=== PATIENT | male | born 1960 | race Caucasian/White ===

== ENCOUNTER 2017-02-10 14:30 | Emergency (ER) | payer BC, OTHER ==
[2017-02-10 14:38] VITALS: BP 132/78
--- NOTE | 2017-02-10 14:58 | UC ---
UC General HPI - HPI Summary HPI Summary: complaint of rash on left leg started approx 2 months ago used hydrocortisone without any relief rash started to feel rough so he used vaseline 2xday with some relief then 2 weeks ago it worsened without vaseline gets scabbed and sticks to his socks slightly itchy denies fever and chills - History of Current Complaint Chief Complaint: UCSkin Stated Complaint: RASH Time Seen by Provider: 02/10/17 14:52 Hx Obtained From: Patient - Allergy/Home Medications Allergies/Adverse Reactions: Allergies Allergy/AdvReac Type Severity Reaction Status Date / Time No Known Allergies Allergy Verified 07/04/15 16:07 PMH/Surg Hx/FS Hx/Imm Hx Previously Healthy: Yes Cardiovascular History: Hypertension - Surgical History Surgical History: Yes Surgery Procedure, Year, and Place: kidney x 2; hernia; knee right repair; cataracts bilat - Family History Known Family History: Negative: Cardiac Disease, Hypertension, Diabetes - Social History Occupation: Employed Full-time Lives: With Family Alcohol Use: Rare Substance Use Type: None Smoking Status (MU): Never Smoked Tobacco - Immunization History Most Recent Tetanus Shot: aug 2014 Review of Systems Constitutional: Negative Skin: Rash Eyes: Negative ENT: Negative Respiratory: Negative Cardiovascular: Negative Gastrointestinal: Negative Genitourinary: Negative Motor: Negative Neurovascular: Negative Musculoskeletal: Negative Neurological: Negative Psychological: Negative All Other Systems Reviewed And Are Negative: Yes Physical Exam Triage Information Reviewed: Yes Appearance: No Pain Distress, Well-Nourished Vital Signs: Initial Vital Signs Temp 98 F 02/10/17 14:33 Pulse 58 02/10/17 14:33 Resp 16 02/10/17 14:33 BP 132/78 02/10/17 14:33 Pulse Ox 99 02/10/17 14:33 Vital Signs Reviewed: Yes Eyes: Positive: Conjunctiva Clear ENT: Positive: Pharynx normal, TMs normal Neck: Positive: Supple Respiratory: Positive: Lungs clear, Normal breath sounds, No respiratory distress, No accessory muscle use Cardiovascular: Positive: RRR, No Murmur, Pulses Normal Abdomen Description: Positive: Nontender, Soft Bowel Sounds: Positive: Present Musculoskeletal: Positive: No Edema Neurological: Positive: Alert Psychological Exam: Normal Skin: Positive: Other - [id number] erythematous with yellow exudate, area of redness with a raised edge Course/Dx - Course Course Of Treatment: exam completed. tinea rash with yellow exdate and erythematous ring around tinea - Differential Dx - Multi-Symptom Differential Diagnoses: Other - tinea, cellultis Provider Diagnoses: tinea with bacterila infection Discharge - Discharge Plan Condition: Stable Disposition: HOME Prescriptions: Cephalexin CAP* [Keflex CAP*] 500 mg PO TID #21 cap Clotrimazole (Topical) [Clotrimazole Antifungal] 1 % EX BID #1 cre Mupirocin 2% OINT* [Bactroban 2 % Oint*] 1 applic TOPICAL BID #1 tube Patient Education Materials: Cellulitis (ED), Tinea Corporis (ED) Referrals: Haven VELIZ,[facility] [Primary Care Provider] - Additional Instructions: Please start antibiotic as directed use the bactroban cream for 7 dyas then switch to using clotrimazole for 7-14 days if area of redness increases please return to the clinic Increase fluids and rest Take acetaminophen or ibuprofen for fever or pain Please review your discharge instructions. If your symptoms do not improve please call your primary care provider or return to urgent care. Your blood pressure is pre-hypertensive reading. Please contact your primary care provider within 1 day -4 weeks for further evaluation
== END 2017-02-10 15:36 | disposition home or self-care (01) ==
LOC: UCEAST 14:30
DX: B35.9 Dermatophytosis, unspecified (principal); A49.9 Bacterial infection, unspecified; I10 Essential (primary) hypertension
CPT/HCPCS: 99212; G0463

== ENCOUNTER 2017-02-27 07:03 | Emergency (ER) | payer BC ==
[2017-02-27 07:19] VITALS: BP 128/87
--- NOTE | 2017-02-27 07:40 | UC ---
Skin Complaint HPI - HPI Summary HPI Summary: 56 yo male with rash left chambers x 2 1/2 mos now worse no improvement with 2 weeks antifungal (topical) now with "blisters on fingers x 2 weeks (painful) - History of Current Complaint Chief Complaint: UCRash Stated Complaint: RASH CONTINUED Hx Obtained From: Patient Onset/Duration: Gradual Onset, Lasting Weeks, Worse Since - 2 weeks Timing: Constant Onset Severity: Mild Current Severity: Moderate Pain Intensity: 2 Pain Scale Used: 0-10 Numeric Character: Pruritus - mild, Pain - hand rash, Redness, Raised Aggravating: Nothing Alleviating: Nothing Associated Signs & Symptoms: Positive: Rash - Allergy/Home Medications Allergies/Adverse Reactions: Allergies Allergy/AdvReac Type Severity Reaction Status Date / Time No Known Allergies Allergy Verified 02/27/17 07:20 Review of Systems Constitutional: Negative Skin: Rash Eyes: Negative ENT: Negative Respiratory: Negative Cardiovascular: Negative Gastrointestinal: Negative Genitourinary: Negative Motor: Negative Neurovascular: Negative Musculoskeletal: Negative Neurological: Negative Psychological: Negative All Other Systems Reviewed And Are Negative: Yes PMH/Surg Hx/FS Hx/Imm Hx Previously Healthy: Yes - Surgical History Surgical History: Yes Surgery Procedure, Year, and Place: kidney x 2; hernia; knee right repair; cataracts bilat - Family History Known Family History: Negative: Cardiac Disease, Hypertension, Diabetes - Social History Alcohol Use: Rare Substance Use Type: None Smoking Status (MU): Never Smoked Tobacco - Immunization History Most Recent Tetanus Shot: aug 2014 Physical Exam Triage Information Reviewed: Yes Appearance: Well-Appearing, No Pain Distress, Well-Nourished Vital Signs: Initial Vital Signs Temp 97.7 F 02/27/17 07:15 Pulse 58 02/27/17 07:15 Resp 18 02/27/17 07:15 BP 128/87 02/27/17 07:15 Pulse Ox 97 02/27/17 07:15 Vital Signs Reviewed: Yes Eyes: Positive: Conjunctiva Clear Neck: Positive: Supple, Nontender Respiratory: Positive: Lungs clear, Normal breath sounds, No respiratory distress Cardiovascular: Positive: RRR, No Murmur Musculoskeletal: Positive: ROM Intact, No Edema Psychological Exam: Normal Skin: Positive: Other - see image Course/Dx - Diagnoses Provider Diagnoses: tinea corporis (kerion) left leg. 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 surrounded by satellite lesions 2 - both hands with bumps/blisters
== END 2017-02-27 07:57 | disposition home or self-care (01) ==
LOC: UCEAST 07:03
DX: B35.4 Tinea corporis (principal); L30.2 Cutaneous autosensitization
CPT/HCPCS: 87101; 99212; G0463

== ENCOUNTER 2019-09-25 08:58 | Emergency (ER) | payer BC ==
--- NOTE | 2019-09-25 09:02 | UC ---
Lower Extremity/Ankle HPI - HPI Summary HPI Summary: 58 yo male presents with right ankle pain. He tells me that gradually through last week he developed RIGHT ankle pain. Friday 09/22 become worse. He rested over the weekend and it feels better, but went to go back to work today and noticed pain return. 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 He denies specific injury, numbness, tingling. He has not taken anything OTC for his symptoms. He states he has a hx of gout and plantar faciitis. - History of Current Complaint Stated Complaint: FOOT PAIN Time Seen by Provider: 09/25/19 09:01 Hx Obtained From: Patient Onset/Duration: Gradual Onset Severity Initially: Moderate Severity Currently: Moderate Pain Intensity: 5 Pain Scale Used: 0-10 Numeric - Allergies/Home Medications Allergies/Adverse Reactions: Allergies Allergy/AdvReac Type Severity Reaction Status Date / Time lisinopril Allergy unk Verified 09/25/19 09:12 PMH/Surg Hx/FS Hx/Imm Hx - Additional Past Medical History Additional PMH: Gout Cardiovascular History: Hypertension - Surgical History Surgical History: Yes Surgery Procedure, Year, and Place: kidney x 2; hernia; knee right repair; cataracts bilat - Family History Known Family History: Negative: Cardiac Disease, Hypertension, Diabetes - Social History Lives: With Family Alcohol Use: Rare Substance Use Type: None Smoking Status (MU): Never Smoked Tobacco - Immunization History Most Recent Tetanus Shot: aug 2014 Review of Systems All Other Systems Reviewed And Are Negative: No Constitutional: Positive: Negative Skin: Positive: Negative Respiratory: Positive: Negative Cardiovascular: Positive: Negative Musculoskeletal: Positive: Other: - Right ankle pain Neurological: Positive: Negative Psychological: Positive: Negative Physical Exam - Summary Physical Exam Summary: GENERAL: NAD. WDWN. No pain distress. SKIN: No rashes, sores, lesions, or open wounds. Right ankle without erythema or warmth. CHEST: No accessory muscle use. Breathing comfortably and in no distress. CV: Pulses intact PT and DP. Cap refill <2seconds MSK: RIGHT ANKLE: FROM. Pain overlying anterior tendons and achilles with dorsiflexion. Pain at achilles with urena test. Strength 5/5. No edema or obvious bony deformities. Negative talar tilt. No increased laxity. Negative Spring test. NEURO: Alert. Sensations intact and symmetric B/L LEs PSYCH: Age appropriate behavior. Triage Information Reviewed: Yes Vital Signs: Vital Signs: Temp Pulse Resp BP Pulse Ox 99.1 F 57 16 144/85 98 09/25/19 09:07 09/25/19 09:07 09/25/19 09:07 09/25/19 09:07 09/25/19 09:07 Vital Signs Reviewed: Yes Diagnostics - Radiology Ankle XR Radiology Interpretation Completed By: Radiologist Summary of Radiographic Findings: IMPRESSION: 1. SOFT TISSUE SWELLING, NO FRACTURE IS SEEN. 2. SUBCHONDRAL CYST OR EROSION WITHIN THE MEDIAL TALUS. Lower Extremity Course/Dx - Course Course Of Treatment: XR as above. Suspect tendinitis - likely due from shoveling snow and being on his feet in large work boots. Advised to rest, ice, elevate, and take naproxen as prescribed for pain. He declined CAM boot today. - Differential Dx/Diagnosis Provider Diagnosis: Ankle tendinitis Discharge ED - Sign-Out/Discharge Documenting (check all that apply): Patient Departure All imaging exams completed and their final reports reviewed: Yes - Discharge Plan Condition: Stable Disposition: HOME Prescriptions: Naproxen [Naproxen 500 mg tab] 500 mg PO BID PRN #30 tablet. PRN Reason: Pain - Mild Patient Education Materials: Tendinitis (ED) Forms: *Work Release Referrals: Haven VELIZ,[facility] [Primary Care Provider] - Additional Instructions: If you develop a fever, shortness of breath, chest pain, new or worsening symptoms - please call your PCP or go to the ED immediately. Your blood pressure was high at todays visit. Please see your primary provider within 4 weeks for recheck and re-evaluation. 1) The X-Ray of your ankle did not reveal a fracture or gout 2) I believe your pain is due to overuse tendinitis of your ankle 3) I recommend rest, ice, and elevation. Try shoe inserts for comfort. 4) Take the naproxen (NSAID) as prescribed to help decrease inflammation and pain - Billing Disposition and Condition Condition: STABLE Disposition: Home
[2019-09-25 09:12] VITALS: BP 144/85
== END 2019-09-25 10:16 | disposition home or self-care (01) ==
LOC: UCEAST 08:58
DX: M77.51 Other enthesopathy of right foot and ankle (principal); M79.89 Other specified soft tissue disorders; I10 Essential (primary) hypertension; M10.9 Gout, unspecified; Z79.899 Other long term (current) drug therapy
CPT/HCPCS: 99212; G0463

== ENCOUNTER 2019-11-04 10:28 | Emergency (ER) | payer BC ==
[2019-11-04 10:51] VITALS: BP 155/96
--- NOTE | 2019-11-04 11:16 | UC ---
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 - History of Current Complaint Chief Complaint: UCUpperExtremity Stated Complaint: LEFT SHOULDER PAIN Time Seen by Provider: 11/04/19 11:08 Hx Obtained From: Patient Onset/Duration: Gradual Onset, Lasting Weeks - 3, Other - no pain at rest today and i cannot elicit pain with palpation or movement Timing: Constant Location Of Pain: Is Discrete @ - left shoulder Pain Intensity: 1 Pain Scale Used: 0-10 Numeric Character: Sharp, Aching Aggravating Factor(s): Movement, Lifting Alleviating Factor(s): Rest Associated Signs And Symptoms: Positive: Negative Related History: Dominant Hand Right - Allergies/Home Medications Allergies/Adverse Reactions: Allergies Allergy/AdvReac Type Severity Reaction Status Date / Time lisinopril Allergy Unknown Verified 11/04/19 10:52 Reaction Details Home Medications: Home Medications Allopurinol TAB* [Zyloprim 100 MG TAB*] 300 mg PO DAILY 07/04/15 [History Confirmed 11/04/19] Losartan/Hydrochlorothiazide [Hyzaar 100/12.5 mg] 100 mg PO DAILY 07/04/15 [ History Confirmed 11/04/19] dilTIAZem HCL [Diltiazem 24Hr ER (Cd)] 360 mg PO DAILY 07/04/15 [History Confirmed 11/04/19] Cholecalciferol TAB* [Vitamin D TAB*] 1,000 unit PO DAILY 11/04/19 [History Confirmed 11/04/19] Ibuprofen TAB* [Motrin TAB* 600 MG] 600 mg PO Q6H PRN #16 tab 11/04/19 [Rx] Loratadine [Claritin] 10 mg PO DAILY 11/04/19 [History Confirmed 11/04/19] Metoprolol Tartrate TAB* [Lopressor TAB*] 75 mg PO BID 11/04/19 [History Confirmed 11/04/19] Rosuvastatin Calcium 10 mg PO DAILY 11/04/19 [History Confirmed 11/04/19] PMH/Surg Hx/FS Hx/Imm Hx Previously Healthy: No - gout Endocrine History: Dyslipidemia Cardiovascular History: Hypertension - Surgical History Surgical History: Yes Surgery Procedure, Year, and Place: kidney x2 ; hernia; knee right repair; cataracts bilat - Family History Known Family History: Negative: Cardiac Disease, Hypertension, Diabetes - Social History Occupation: Employed Full-time Lives: With Family Alcohol Use: None Substance Use Type: None Smoking Status (MU): Former Smoker When Did the Patient Quit Smoking/Using Tobacco: quit age 17 - Immunization History Most Recent Tetanus Shot: aug 2014 Review of Systems All Other Systems Reviewed And Are Negative: Yes Constitutional: Positive: Negative Skin: Positive: Negative Eyes: Positive: Negative ENT: Positive: Negative Respiratory: Positive: Negative Cardiovascular: Positive: Negative Gastrointestinal: Positive: Negative Genitourinary: Positive: Negative Motor: Positive: Negative Neurovascular: Positive: Negative Musculoskeletal: Positive: Arthralgia - left shoulder Neurological/Mental Status: Positive: Negative Psychological: Positive: Negative Is Patient Immunocompromised?: No Physical Exam Triage Information Reviewed: Yes Appearance: Well-Appearing, No Pain Distress, Well-Nourished Vital Signs: Initial Vital Signs Temp 98.2 F 11/04/19 10:45 Pulse 63 11/04/19 10:45 Resp 16 11/04/19 10:45 BP 155/96 11/04/19 10:45 Pulse Ox 96 11/04/19 10:45 Vital Signs Reviewed: Yes Eye Exam: Normal Eyes: Positive: Conjunctiva Clear ENT Exam: Normal ENT: Positive: Normal ENT inspection, Hearing grossly normal, Pharynx normal. Negative: Trismus, Muffled voice, Hoarse voice Dental Exam: Normal Neck exam: Normal Neck: Positive: Supple, Nontender, No Lymphadenopathy Respiratory Exam: Normal Respiratory: Positive: Chest non-tender, Lungs clear, Normal breath sounds, No respiratory distress, No accessory muscle use Cardiovascular Exam: Normal Cardiovascular: Positive: RRR, Brisk Capillary Refill Musculoskeletal Exam: Normal Musculoskeletal: Positive: Strength Intact, ROM Intact, No Edema Neurological Exam: Normal Neurological: Positive: Alert, Muscle Tone Normal Psychological Exam: Normal Skin Exam: Normal Diagnostics - Radiology No standard instances Radiology Interpretation Completed By: Radiologist - mild arthritis Shoulder Course/Dx - Course Course Of Treatment: rest ice, ibu for 5 days only ( due to elevated BP) follow with ortho if no improvement, follow bp with pcp - Differential Dx/Diagnosis Provider Diagnosis: Arthritis of shoulder region, left, Hypertension Discharge ED - Sign-Out/Discharge Documenting (check all that apply): Patient Departure All imaging exams completed and their final reports reviewed: Yes - Discharge Plan Condition: Stable Disposition: HOME Prescriptions: Ibuprofen TAB* [Motrin TAB* 600 MG] 600 mg PO Q6H PRN #16 tab PRN Reason: pain Patient Education Materials: Ibuprofen (By mouth), Hypertension (ED), Shoulder Pain (ED) Referrals: Pollo Turner MD [Medical Doctor] - 5 Days - Billing Disposition and Condition Condition: STABLE Disposition: Home
== END 2019-11-04 12:23 | disposition home or self-care (01) ==
LOC: UCEAST 10:28
DX: I10 Essential (primary) hypertension (principal); M19.012 Primary osteoarthritis, left shoulder; E78.5 Hyperlipidemia, unspecified; Z79.899 Other long term (current) drug therapy; Z87.891 Personal history of nicotine dependence; Z88.8 Allergy status to other drugs, medicaments and biological substances
CPT/HCPCS: 99212; G0463